=== PATIENT | female | born 1965 | race Caucasian/White ===

== ENCOUNTER → 2024-03-07 11:08 | Outpatient (REF) | payer OTHER, SELFPAY | LOC: WDC 11:08 | PROVIDERS: ATTENDING PHYSICIAN Physician Assistant Medical | DX: Z12.31 Encounter for screening mammogram for malignant neoplasm of breast (principal) | CPT/HCPCS: 77063; 77067 ==

== ENCOUNTER → 2024-03-19 08:20 | Outpatient (REF) | payer OTHER, SELFPAY | LOC: WDC 08:20 | PROVIDERS: ATTENDING PHYSICIAN Physician Assistant Medical | DX: R92.8 Other abnormal and inconclusive findings on diagnostic imaging of breast (principal) | CPT/HCPCS: 76642 ==

== ENCOUNTER → 2024-04-12 06:16 | Day surgery (SDC) | payer OTHER, SELFPAY | LOC: GI 06:16 | PROVIDERS: ATTENDING PHYSICIAN Internal Medicine | DX: Z12.11 Encounter for screening for malignant neoplasm of colon (principal); D12.5 Benign neoplasm of sigmoid colon; K62.1 Rectal polyp; Q43.8 Other specified congenital malformations of intestine | CPT/HCPCS: 45385; 45380; 88305 ==

== ENCOUNTER → 2025-02-11 07:29 | Outpatient (REF) | payer OTHER, SELFPAY | LOC: RAD 07:29 | PROVIDERS: ATTENDING PHYSICIAN Physician Assistant Medical | DX: R14.0 Abdominal distension (gaseous) (principal); K59.09 Other constipation | CPT/HCPCS: 74178; Q9967 ==

== ENCOUNTER → 2025-03-05 08:39 | Outpatient (REF) | payer OTHER, SELFPAY | LOC: MRI 08:39 | PROVIDERS: ATTENDING PHYSICIAN Internal Medicine Gastroenterology | DX: R93.5 Abnormal findings on diagnostic imaging of other abdominal regions, including retroperitoneum (principal) | CPT/HCPCS: 72197; 74183 ==

== ENCOUNTER → 2025-04-09 14:57 | Outpatient (REF) | payer OTHER, SELFPAY | LOC: WDC 14:57 | PROVIDERS: ATTENDING PHYSICIAN Nurse Practitioner Adult Health; FAMILY PHYSICIAN Physician Assistant Medical | DX: Z12.31 Encounter for screening mammogram for malignant neoplasm of breast (principal) | CPT/HCPCS: 77063; 77067 ==

== ENCOUNTER → 2025-04-12 08:51 | Outpatient (REF) | payer OTHER, SELFPAY ==
[2025-04-12 09:33] LABS: Glucose 117 mg/dl (70-99)
== END ==
LOC: REG 08:51
PROVIDERS: ATTENDING PHYSICIAN Internal Medicine Hematology & Oncology; FAMILY PHYSICIAN Physician Assistant Medical
DX: R59.0 Localized enlarged lymph nodes (principal)
CPT/HCPCS: 36415; 82947

== ENCOUNTER → 2025-04-17 13:29 | Outpatient (REF) | payer OTHER, SELFPAY | LOC: REG 13:29 | PROVIDERS: ATTENDING PHYSICIAN Internal Medicine Hematology & Oncology | DX: R59.0 Localized enlarged lymph nodes (principal) | CPT/HCPCS: 36415 ==

== ENCOUNTER → 2025-05-06 07:58 | Outpatient (REF) | payer OTHER, SELFPAY | LOC: HWRAD 07:58 | PROVIDERS: ATTENDING PHYSICIAN Nurse Practitioner Adult Health; FAMILY PHYSICIAN Physician Assistant Medical | DX: N83.209 Unspecified ovarian cyst, unspecified side (principal); R59.1 Generalized enlarged lymph nodes | CPT/HCPCS: 76830; 76856 ==

== ENCOUNTER → 2025-05-28 06:59 | Outpatient (REF) | payer OTHER, SELFPAY ==
[2025-05-28 07:22] VITALS: BP 116/78; BP_SYST 74
[2025-05-28 07:55] LABS: Hematocrit 41.5 % (37.0-47.0); Hemoglobin 14.0 g/dL (12.0-16.0); Mean Corp Hgb Conc. 33.7 g/dL (33.0-37.0); Mean Corpuscular Volume 89.1 fL (81.0-99.0); Platelet Count 272 10^3/uL (130-400); Red Cell Dist. Width 12.9 % (11.5-14.5)
[2025-05-28 08:05] LABS: INR 0.98; PT 13.3 Sec (11.4-14.6)
[2025-05-28 09:10] VITALS: BP 109/78; BP_SYST 64
[2025-05-28 09:15] VITALS: BP 108/73; BP_SYST 63
[2025-05-28 09:37] VITALS: BP 118/82; BP_SYST 61
[2025-05-28 09:41] VITALS: BP 109/85
== END ==
LOC: RADI 06:59
PROVIDERS: ATTENDING PHYSICIAN Internal Medicine Hematology & Oncology; FAMILY PHYSICIAN Physician Assistant Medical; REFERRING PHYSICIAN Physician Assistant
DX: R59.0 Localized enlarged lymph nodes (principal)
CPT/HCPCS: 36415; 49180; 77012; 85027; 85610; 88305; 88333; 88341; 88342; 99152